=== PATIENT | female | born 1975 | race African-American/Black ===

== ENCOUNTER 2018-05-24 13:28 | Outpatient (CLI) | payer OTHER ==
--- NOTE | 2018-05-24 15:42 | MRI ---
MRI RIGHT SHOULDER WITHOUT CONTRAST: Date: 05/24/18 HISTORY: Injury. S49.91XD injury of right shoulder. COMPARISON: Radiograph dated 04/27/18. FINDINGS: Biceps Tendon: There is interstitial tear of the interarticular biceps tendon with moderate tendinosis. Labrum: Increased fluid signal within the labrum with intrasubstance tear at the biceps anchor and extending just posterior to the biceps labral anchor. Rotator Cuff: There is marked tendinosis of the supraspinatus and infraspinatus tendons. Subcortical erosion of the footprint of the greater tuberosity due to chronic insinuation of fluid from interstitial type teari ng. There is mild bursal surface fraying of the supraspinatus tendon. No full thickness perforation. Bones: There is moderate hypertrophic degenerative disease of the acromioclavicular joint. Type I acromion. Normal glenoid version. Soft Tissues: Normal appearance of the subcoracoid fat. No significant thickening of the axillary pouch. No axillar y adenopathy. Small subacromial/subdeltoid bursa effusion. Muscles: The muscle signal and bulk are normal. IMPRESSION: 1. Superior labral tear at the biceps labral anchor extending posteriorly. 2. Severe tendinosis of the rotator cuff with low grade interstitial type tearing at the footprint o f the greater tuberosity at the supraspinatus tendon without bursal or articular surface extension. N o full thickness perforation. 3. Small subacromial/subdeltoid bursa effusion. 4. No significant muscle atrophy. 5. Interarticular tendinosis biceps tendon with interstitial type tearing. POS: CET
== END 2018-05-24 13:29 | disposition home or self-care (01) ==
LOC: BICMRI 13:28
PROVIDERS: ATTEND Family Medicine
DX: S49.91XD Unspecified injury of right shoulder and upper arm, subsequent encounter (principal); S43.401A Unspecified sprain of right shoulder joint, initial encounter; M75.91 Shoulder lesion, unspecified, right shoulder; M25.411 Effusion, right shoulder